=== PATIENT | female | born 1960 | race Caucasian/White ===

== ENCOUNTER 2017-09-23 06:13 | Day surgery (SDC) | payer BC ==
--- NOTE | 2016-11-13 09:34 | HP ---
CC: Marcos Simmons MD at [facility]; Maggie Alberto MD PREOPERATIVE HISTORY AND PHYSICAL: DATE OF ADMISSION: 11/26/16 This patient is scheduled for a same-day surgery by Dr. Simmons on 11/26/16. ATTENDING SURGEON: Marcos Simmons MD (dictated by Tito Hewitt NP) CHIEF COMPLAINT: Epigastric hernia. HISTORY OF PRESENT ILLNESS: The patient is a 56-year-old female referred to Dr. Simmons by Dr. Alejandro mckeon for evaluation of an epigastric hernia. This has been present for several years and she feels that it has increased in size and is causing her some discomfort. She denies any nausea or vomiting or change in bowel habits and there has been no abdominal distention. Dr. Simmons examined the p atient and noted on abdominal exam a firm, tender, nonreducible mass about 3 or 4 cm above the umbil icus consistent with a ventral hernia, most likely epigastric hernia. Dr. Simmons has recommended open repair of the epigastric hernia with mesh as a same-day surgery procedure. He discussed the n ature of the surgical procedure, the rationale for the procedure, the relevant risks and benefits, a nd today I reviewed the expected postoperative care and recovery. The patient has had a chance to a sk questions and stated that she understands the information and is satisfied with the answerers giv en to her questions. She will sign surgical consent on the day of surgery. PAST MEDICAL HISTORY: Generally healthy. No acute or chronic conditions. PAST SURGICAL HISTORY: Casserian section in 2002 and ear surgery around 2004. OB HISTORY: 1, para 1. She is up-to-date with breast exam, mammogram, and pelvic exam with in the past year. She is postmenopausal. MEDICATIONS: 1. Valacyclovir 500 mg 1 tablet b.i.d. p.r.n. 2. Multivitamin daily. 3. Calcium supplement daily. ALLERGIES: No known drug allergies. FAMILY HISTORY: No known anesthesia complications, bleeding tendencies, or clotting disorders. SOCIAL HISTORY: She is a nonsmoker. 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 She drinks 10 glasses of wine per week on an average and denies the use of other substances. REVIEW OF SYSTEMS: She denies any cardiac conditions or complaints; she denies any history of deep vein thrombosis or pulmonary embolism. She denies any respiratory conditions or complaints and she is a nonsmoker; she denies any previous anesthesia complications. She denies any gastrointestinal c onditions or complaints; she denies any genitourinary conditions or complaints; she denies any muscu loskeletal conditions or complaints and denies any neurologic conditions or complaints. She has nev er had a deep vein thrombosis or pulmonary embolism and she has never required a blood transfusion. PHYSICAL EXAMINATION GENERAL: General Survey; the patient is a 56-year-old female, well developed, well nourished; in no acute distress. VITAL SIGNS: Height 62 inches, weight 126 pounds, body mass index 23. Blood pressure 128/82, pulse 66 and regular, respiratory rate 16, and temperature 98.7. HEENT: Benign. NECK: Supple. No cervical lymphadenopathy. BACK: No CVA tenderness. LUNGS: Breath sounds bilaterally clear and equal. HEART: Regular rate and rhythm. No murmurs or rubs appreciated. ABDOMEN: Active bowel sounds, soft and nondistended. Obvious mass 3 cm above the umbilicus that is soft and minimally tender and not reducible, consistent with ventral hernia, most likely epigastric hernia. No other palpable masses or organomegaly. Pelvis and rectal exam is deferred. EXTREMITIES: Warm without edema or skin ulceration. SKIN: Warm, dry, and intact. NEUROLOGIC: Alert and oriented x3; steady gait. IMPRESSION: Epigastric hernia. PLAN: Same-day surgery admission to Dr. Simmons's service on 11/26/16, for open repair of epigastric hernia with mesh. TITO HEWITT, JACQUIE [id number]/[facility] #: [id number]
--- NOTE | 2017-09-16 20:24 | HP ---
CC: Maggie Alberto MD* HISTORY AND PHYSICAL: DATE OF ADMISSION: 09/23/17 ATTENDING SURGEON: Marcos Simmons MD * (DICTATED BY YNES BENAVIDEZ) CHIEF COMPLAINT: Epigastric hernia. HISTORY OF PRESENT ILLNESS: This is a 57-year-old generally healthy female who for the past few years has noted a lump in the abdominal wall just above the umbilicus. There was no antecedent injury or straining. She first noted it as a "knot", and in recent years it has increased in size with occasional discomfort. She was actually scheduled for repair of the hernia last year, but because of circumstances related to work, she canceled at that time. She was seen most recently by Dr. Simmons on 05/24/17, at which time exam confirmed the presence of an incompletely reducible epigastric hernia. He has described for her the indications, the risks, benefits and alternatives of the surgery. She has not had any symptoms to suggest incarceration or strangulation. She denies any specific GI changes or symptoms. She understands the expected perioperative course and would like to proceed as scheduled with open repair epigastric hernia with mesh. PAST MEDICAL HISTORY: 1. Cervical dystonia (torticollis) for which she has received Botox injections with some success in [place]. 2. Recurrent oral herpes simplex. PAST SURGICAL HISTORY: 1. in 2002 via Pfannenstiel incision. 2. 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 CURRENT MEDICATIONS: 1. Valacyclovir 500 mg b.i.d. x3 days p.r.n. 2. Multivitamin once daily. 3. Calcium supplement daily. 4. Baclofen 10 mg b.i.d. DRUG ALLERGIES: None known. FAMILY HISTORY: Negative for anesthesia problems, bleeding or clotting disorders. The patient herself states that she does catch up with nausea related to anesthesia and/or narcotics. No family history of bleeding or clotting disorders. SOCIAL HISTORY: The patient lives alone. 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 She denies use of tobacco. She drinks on average 12 to 15 glasses of wine per week. She denies other recreational drug use. REVIEW OF SYSTEMS: General: No recent constitutional symptoms or acute illnesses. Cardiovascular: No chest pain, palpitations, history of hypertension or heart murmur. Respiratory: No history of asthma, chronic cough or shortness of breath. GI: No problems reported. Colonoscopy done in 2010, with recommended 10-year followup and no interval problems reported. : No problems reported. 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 Endocrine: No diabetes or thyroid dysfunction. Musculoskeletal: As above. No additions. PHYSICAL EXAMINATION GENERAL: Well-nourished, well-developed female in no acute distress. VITAL SIGNS: Height 5 feet 2 inches, weight 132 pounds. Temperature 98.4, blood pressure 130/80, pulse 68, respirations 16. HEENT: Pupils equal and round, reactive. EOMs intact. No conjunctival pallor. Oropharynx: Teeth in good repair. No intraoral lesions. NECK: No lymphadenopathy in the cervical or supraclavicular regions. No thyromegaly or masses. LUNGS: Clear to auscultation. No rales or wheezes. HEART: Regular rate and rhythm. No murmur noted. BREASTS: Not examined. ABDOMEN: There is minimally visible in the supine position, a lump just above the umbilicus. This is readily palpable, however, and partially reducible with mild tenderness. This is consistent with the aforementioned epigastric hernia. There are no other palpable abdominal masses, organomegaly. GENITALIA AND RECTAL: Not done. NEUROLOGIC: Grossly intact. SKIN: Warm and dry. No suspicious rashes or lesions noted. BACK: No spinous process or CVA tenderness. EXTREMITIES: No edema. IMPRESSION: Epigastric hernia. PLAN: Open repair epigastric hernia with mesh. YNES BENAVIDEZ [id number]/[facility] #: [id number] [facility] HOSPITALLizzie
[~2017-09-23 06:13] MED LIST: Buffered Lidocaine 0.9% SYRIN* 5 ML/SYR SYRINGE INTRADERM ONE; Famotidine IV* 10 MG/ML 2 ML (20 mg) IV ONE
[2017-09-23] MEDS ORDERED: Bupivacaine 0.5% SDV PF* 10-30ML VIAL ONE (06:48)
[2017-09-23] MEDS ORDERED: Lidocaine 1% MPF wEPI 200,000* 30 ML SDV ONE (06:48)
[2017-09-23] MEDS ORDERED: ceFAZolin 2 GM in 100 MLS NS (*) BAG IVPB ONE (06:49)
[2017-09-23] MEDS ORDERED: Famotidine IV* 10 MG/ML 2 ML (20 mg) ONE (06:49)
[2017-09-23] MEDS ORDERED: fentaNYL* 50 MCG/ML 2 ML VIAL (100 MCG VIAL) ONE (07:25)
[2017-09-23] MEDS ORDERED: Midazolam* 1 MG/ML 5 ML VIAL (5 MG) ONE (07:25)
[2017-09-23] MEDS ORDERED: Lidocaine 2% PF * 5 ML VIAL ONE (07:39)
[2017-09-23] MEDS ORDERED: Ketorolac INJ* 30 MG/ML 1 ML VIAL ONE (07:39)
[2017-09-23] MEDS ORDERED: DiMENhydriNATE IV* 50 MG/ML VIAL ONE (07:39)
[2017-09-23] MEDS ORDERED: Dexamethasone IV* 4 MG/ML 1 ML (4 MG) ONE (07:39)
[2017-09-23] MEDS ORDERED: Ondansetron INJ* 2 MG/ML VIAL ONE (07:39)
[2017-09-23] MEDS ORDERED: Propofol* 10 MG/ML 20 ML BTL IV PUSH ONE (07:39)
[2017-09-23] MEDS ORDERED: DiMENhydriNATE IV* 50 MG/ML VIAL IV PUSH PRN (08:02)
[2017-09-23] MEDS ORDERED: oxyCODONE TAB* 5 MG TAB PO PRN (08:02)
[2017-09-23] MEDS ORDERED: Acetaminophen TAB* 325 MG PO PRN (08:02)
[2017-09-23] MEDS ORDERED: Naloxone* 0.4 MG/ML 1 ML VIAL IV PRN (08:02)
[2017-09-23 11:16] VITALS: BP 120/77
--- NOTE | 2017-09-24 15:09 | OP ---
DATE OF OPERATION: 09/23/17 - [facility] DATE OF : 62 SURGEON: Marcos Simmons MD. HATCH BOSS: YNES Fish. ANESTHESIOLOGIST: Dr. Galvin ANESTHESIA: Local with monitored anesthesia care. PRE-OP DIAGNOSIS: Midline epigastric hernia. POST-OP DIAGNOSIS: Midline epigastric hernia. OPERATIVE PROCEDURE: Open primary repair of a small epigastric midline hernia. ESTIMATED BLOOD LOSS: Minimal. WOUND CLASSIFICATION: 1. COMPLICATIONS: None. SPECIMEN: Hernia sac. DRAINS: None. MESH USED: None. DESCRIPTION OF PROCEDURE: Written informed consent was obtained. The abdomen was marked with indelible ink. Preoperative antibiotics were administered. The patient was taken to the operating room and placed in the supine position. Sequential compression devices and a warming blanket were applied. General anesthesia was administered and the abdomen was prepped and draped in the usual sterile fashion. Time-out verification was completed. Initially, 1% lidocaine mixed with 0.25% Marcaine was infiltrated over the palpable lump in the midline that was 2 to 3 fingerbreadths above the umbilicus. This dissection was carried down sharply. We identified some fat protruding up into the subcutaneous space and followed this down to the midline fascia. In the midline fascia, there was fascial defect that was no more than 1 cm in size. The large amount of fat was not able to be reduced and I excised this using cautery. This did appear to contain the hernia sac and we did enter the peritoneal cavity. The fascia appeared to be healthy and due to its small size I elected not use mesh. The [place] fascia was then closed in a transverse orientation with three separate 0-Vicryl sutures placed simply. Hemostasis was assured. Initial Marcaine was infiltrated. The skin and subcutaneous tissue was closed in layers of 3-0 and 4-0 Vicryl suture. Steri-Strips and sterile dressings were applied. The patient tolerated the procedure well, was taken to the recovery room in stable condition. [id number]/[facility] #: [id number] [facility]
== END 2017-09-23 11:17 | disposition home or self-care (01) ==
LOC: OR 06:13
PROVIDERS: ATTEND Surgery
DX: K43.9 Ventral hernia without obstruction or gangrene (principal); F41.8 Other specified anxiety disorders; J30.2 Other seasonal allergic rhinitis
CPT/HCPCS: 88302; J1100; J1240; J1885; J2001; J2250; J2405; J2704; J3010